=== PATIENT | male | born 1940 | race Caucasian/White ===

== ENCOUNTER 2018-02-18 14:51 | Outpatient (RCR) | payer MEDICARE | END 2018-05-19 | disposition home or self-care (01) | LOC: ONC 14:51 | PROVIDERS: ATTEND Radiology Radiation Oncology | DX: C61 Malignant neoplasm of prostate (principal) | CPT/HCPCS: 99204 ==

== ENCOUNTER 2018-06-18 09:01 | Outpatient (RCR) | payer MEDICARE ==
[2018-07-24] MEDS ORDERED: HYDR-3812 PO (13:19)
[2018-07-24] MEDS ORDERED: TAMS0.4C98 PO (13:19)
[2018-07-24] MEDS ORDERED: AMLO10TA7 PO (13:19)
[2018-07-24] MEDS ORDERED: BICA50TA5 PO (13:19)
[2018-07-24] MEDS ORDERED: RT-ALBUINH INH (13:20)
== END 2018-09-03 | disposition home or self-care (01) ==
LOC: ONC 09:01
PROVIDERS: ATTEND Radiology Radiation Oncology
DX: C61 Malignant neoplasm of prostate (principal)
CPT/HCPCS: 76873; 77300; 77301; 77334; 77338

== ENCOUNTER 2018-07-24 13:40 | Outpatient (CLI) | payer MEDICARE ==
[~2018-07-24] VITALS: Ht 175.3 cm; Wt 63.5 kg
[~2018-07-24 13:40] MED LIST: AMLO10TA7 PO; BICA50TA5 PO; HYDR-3812 PO; RT-ALBUINH INH; TAMS0.4C98 PO
== END 2018-07-24 13:44 | disposition home or self-care (01) ==
LOC: PREOP 13:40
PROVIDERS: ATTEND Urology
DX: Z01.818 Encounter for other preprocedural examination (principal)